=== PATIENT | male | born 1965 | race Caucasian/White ===

== ENCOUNTER 2016-07-08 10:00 | Inpatient (IN) | payer BC, OTHER ==
[~2016-07-08] VITALS: Ht 172.7 cm; Wt 138.8 kg
--- NOTE | ~2016-07-08 | HC ---
[facility] [address] [place] [address] CONSULTATION Name: ALCON MARCUM Room #: 423-1 ADM IN M.R.#: [id number] Admission: 07/08/16 Attend Phys: Ori Garcia MD Discharge: Date of : 67 Report #: [id number] THIS REPORT FOR: //name// CC: VAMSHI Garcia INFECTIOUS DISEASE CONSULTATION REASON FOR CONSULTATION: I was asked to evaluate concerning olecranon bursitis. HISTORY OF PRESENT ILLNESS: The patient is a 50-year-old diabetic who presented to the emergency room on 07/06/2016 with pain and swelling in his elbow, with some numbness in his hand. Was placed on meloxicam and prednisone. He worsened and returns with increased pain, swelling and erythema throughout his forearm and involving the upper arm. He has had mild chills, but no definite rigors. No nausea, vomiting or diarrhea. Blood glucose has been elevated. He came back to the emergency room and admitted for further treatment. He was started on vancomycin. No prior injuries. No history of arthritis. No history of skin or soft tissue infections. ALLERGIES: No known allergies. MEDICATIONS: As noted on his MAR, now on vancomycin. Also takes metformin, aspirin, dapagliflozin (Farxiga), previous statin and lisinopril. PAST MEDICAL HISTORY: As noted above, with diabetes, hypertension and hyperlipidemia. SOCIAL HISTORY: He is a nonsmoker. No significant alcohol intake. REVIEW OF SYSTEMS: No cardiopulmonary, GI or complaints. PHYSICAL EXAMINATION: VITAL SIGNS: He is afebrile and hemodynamically stable. GENERAL: Alert, cooperative and pleasant, wearing his nasal CPAP. He is obese. HEENT: Unremarkable. NECK: Supple. LUNGS: Clear. HEART: Regular. ABDOMEN: Soft and nontender. EXTREMITIES: Unremarkable, except for his left upper extremity, which had 2+ swelling in the forearm and olecranon space. He had tenderness throughout this region, there was warmth and erythema. He had limited range of motion in his elbow. Pulses in the wrist and sensation in the hand were normal. [facility] [address] [place] [address] CONSULTATION Name: ALCON MARCUM Room #: 423-1 ADM IN M.R.#: [id number] Admission: 07/08/16 Attend Phys: Ori Garcia MD Discharge: Date of : 67 Report #: [id number] LABORATORY STUDIES: MRI scan showed soft tissue swelling and a small abscess, unchanged in the posterior aspect of the elbow soft tissues. ESR was 58. Hemoglobin 15, white count 24.5, segs 90%, bands 6% bands and platelet count 229,000. Sodium 136, potassium 4.1, bicarbonate 24 and creatinine 1. Liver function test normal. IMPRESSION: A 50-year-old diabetic with an olecranon bursitis and soft tissue infection and cellulitis. PLAN: Recommend continuing IV antibiotic therapy. Will apply heat and elevation and re-assess in 24 hours. Blood cultures will be obtained and screened for MRSA. It MRSA screen is negative, we will continue his antibiotic coverage with cefazolin. Orthopedic surgery has been consulted. If no marked improvement in the next 24 hours, I would consider incision and drainage of the olecranon in order to drain the fluid collection. <ELECTRONICALLY SIGNED> By: Griffin De La Rosa MD 07/11/16 1120 [id number] Griffin De La Rosa MD /nt
--- NOTE | ~2016-07-08 | HC ---
[facility] [address] [place] [address] CONSULTATION Name: ALCON MARCUM Room #: 423-1 ADM IN M.R.#: [id number] Admission: 07/08/16 Attend Phys: Ori Garcia MD Discharge: Date of : 67 Report #: [id number] THIS REPORT FOR: //name// CC: VAMSHI Garcia DATE OF SERVICE: 07/08/2016 SERVICE: Orthopedics. IMPLEMENTATION SPECIALIST PAYROLL: Carlitos Lentz M.D. REQUESTING IMPLEMENTATION SPECIALIST PAYROLL: Ori Garcia M.D. REASON FOR CONSULTATION: Left elbow pain and swelling, cellulitis versus septic joint. PAST MEDICAL HISTORY: Hypertension, hyperlipidemia and diabetes mellitus type 2. SOCIAL HISTORY: No tobacco or drug use. He drinks alcohol rarely. 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 CURRENT MEDICATIONS: Lisinopril, aspirin, vancomycin, Lovenox, atorvastatin, metformin, Zofran and pain medicine p.r.n. ALLERGIES: No known drug allergies. FAMILY HISTORY: Noncontributory. REVIEW OF SYSTEMS: Positive for left elbow pain. Negative for drainage, nausea, vomiting, chest pain, shortness of breath, diarrhea, complaints or skin changes other than the swelling and redness or lymphadenopathy. CHIEF COMPLAINT: Left elbow pain. HISTORY OF PRESENT ILLNESS: The patient is a 50-year-old right-hand dominant gentleman with type 2 diabetes, who presented to the emergency room 2 days ago with left elbow pain and swelling. He was felt to have an inflammatory bursitis and was placed on steroids and then he went to the [employer] last night and the pain became progressively worse and he was developing swelling and eventually erythema along the elbow. He presented to the emergency room again today and then was admitted with extensive cellulitis and orthopedics was consulted to consider possible septic joint. An MRI was obtained and this showed no effusion and no myositis or osteomyelitis and no evidence of an infectious process in the joint. Presently, the patient is admitted to the [address] [place] [address] CONSULTATION Name: ALCON MARCUM Room #: 423-1 [facility] IN [facility].#: [id number] Admission: 07/08/16 Attend Phys: Ori Garcia MD Discharge: Date of : 67 Report #: [id number] floor and receiving vancomycin. PHYSICAL EXAMINATION: VITAL SIGNS: T-max of 37.3, T-current 37.1, pulse rate 95, respiratory rate 18, blood pressure 112/61 and pulse ox 95%. GENERAL: He is overweight, but otherwise healthy-appearing gentleman, alert and oriented, no acute distress, very pleasant and cooperative. He is lying supine on the hospital bed. EXTREMITIES: Right upper extremity and bilateral lower extremities show no evidence of acute orthopedic infection or orthopedic process. Left upper extremity, he has motor and sensory function intact to distribution of the radial, median and ulnar nerves. There is erythema and swelling on the distal triceps, down to the proximal half of the forearm, present on the extensor surface and extending around medially and laterally. The cubital fossa appears to be unaffected. There is no excessive swelling over the olecranon bursa and there is no evidence of fluid or purulent pocket. There is no drainage present. He has range of motion from 15 degrees of flexion to 95 degrees of flexion, without any irritability in this position. He has terminal joint pain at these extremes of motion. He has full pronation and supination intact. Shoulder, wrist and fingers are without evidence of an infectious process. He has a palpable pulse. IMAGING: Two views of the elbow, obtained 2 days ago, show no fracture or evidence of osteomyelitis. MRI obtained today shows extensive cellulitis that is all superficial to the fascia. There is no bony involvement, no myositis and no significant effusion. The amount of fluid appears to be normal for an elbow joint. IMPRESSION: A 50-year-old right-hand dominant male with type 2 diabetes with left elbow, forearm and distal arm cellulitis. PLAN: I will continue to follow him. I do not think that he has a septic joint on exam today. I explained this to him and answered his questions. I agree with the IV antibiotics and I recommended splint for soft tissue rest. We should hopefully be able to discontinue the splint and progress to activities and range of motion as tolerated once he has had a decrease in his pain and discomfort after receiving an adequate amount of IV antibiotics. Questions were answered and we will continue to follow. <ELECTRONICALLY SIGNED> By: Carlitos Lentz MD 07/09/16 0542 [id number] Carlitos Lentz MD /nt
[~2016-07-08 10:00] MED LIST: ASPIR 8181 MG PO; FARXIGA5 MG PO; KEFLEX500 MG PO; LISINOPRIL20 MG PO; METFORMIN HCL500 MG PO; MOBIC7.5 MG PO; NAPROSYN500 MG PO; NORCO 5-325 TA1 EACH PO; PRAVACHOL40 MG PO; PREDNISONE 20 M20 MG PO
[2016-07-08 10:03] VITALS: BP 130/90
[2016-07-08 11:05] LABS: HEMATOCRIT 45.7 % (42.0-52.0); HEMOGLOBIN 15.1 gm/dL (14.0-18.0); MCH 27.8 pg (26.0-34.0); MCHC 33.1 g/dL (28.0-37.0); PLATELET COUNT 229 thou/uL (150-400); RBC 5.45 mil/uL (4.50-6.00); RDW 15.2 % (10.5-14.5); WBC 24.5 thou/uL (4.0-11.0)
[2016-07-08 11:08] LABS: MANUAL DIFF YES
[2016-07-08 11:09] LABS: POTASSIUM 4.1 mmol/L (3.5-5.1)
[2016-07-08 11:14] LABS: ALBUMIN 3.6 g/dL (3.4-5.0); TOTAL BILIRUBIN 0.8 mg/dL (<0.1-1.0); TOTAL PROTEIN 7.5 g/dL (6.4-8.2)
[2016-07-08 11:58] LABS: ABSOLUTE NEUTROPHILS 23.5 thou/uL (1.4-8.2); ANISOCYTOSIS 1+; TOTAL CELL COUNT 100
[2016-07-08 13:20] VITALS: BP 119/68
[2016-07-08 13:52] VITALS: BP 138/82
[2016-07-08 15:29] VITALS: BP 112/61
[2016-07-08 19:56] VITALS: BP 123/63
[2016-07-09 03:43] VITALS: BP 117/68
[2016-07-09 04:20] LABS: HEMATOCRIT 42.2 % (42.0-52.0); HEMOGLOBIN 13.6 gm/dL (14.0-18.0); MCH 27.8 pg (26.0-34.0); MCHC 32.2 g/dL (28.0-37.0); MCV 86.4 fL (80.0-100.0); RBC 4.89 mil/uL (4.50-6.00); RDW 15.2 % (10.5-14.5); WBC 21.6 thou/uL (4.0-11.0)
[2016-07-09 04:33] LABS: CALCIUM 8.3 mg/dL (8.5-10.1); CREATININE 0.7 mg/dL (0.7-1.3)
[2016-07-09 07:31] VITALS: BP 120/63
[2016-07-09 16:04] VITALS: BP 132/76
[2016-07-09 21:30] VITALS: BP 161/82
[2016-07-10 04:48] LABS: HEMATOCRIT 41.8 % (42.0-52.0); HEMOGLOBIN 13.5 gm/dL (14.0-18.0); MCH 27.6 pg (26.0-34.0); MCHC 32.2 g/dL (28.0-37.0); MCV 85.7 fL (80.0-100.0); RBC 4.88 mil/uL (4.50-6.00); RDW 15.2 % (10.5-14.5); WBC 14.7 thou/uL (4.0-11.0)
[2016-07-10 08:22] VITALS: BP 96/67
[2016-07-10 16:29] VITALS: BP 153/86
[2016-07-10 20:35] VITALS: BP 128/69
[2016-07-11 04:50] VITALS: BP 118/77
[2016-07-11 05:42] LABS: HEMATOCRIT 41.1 % (42.0-52.0); HEMOGLOBIN 13.5 gm/dL (14.0-18.0); MCH 27.7 pg (26.0-34.0); MCHC 32.8 g/dL (28.0-37.0); MCV 84.4 fL (80.0-100.0); RBC 4.87 mil/uL (4.50-6.00); WBC 15.2 thou/uL (4.0-11.0)
[2016-07-11 06:03] LABS: CALCIUM 8.3 mg/dL (8.5-10.1); CREATININE 0.8 mg/dL (0.7-1.3); POTASSIUM 3.9 mmol/L (3.5-5.1)
[2016-07-11 07:51] VITALS: BP 138/83
[2016-07-11 15:44] VITALS: BP 128/77
[2016-07-11 19:56] VITALS: BP 123/92
[2016-07-12 04:57] VITALS: BP 123/79
[2016-07-12 05:30] LABS: HEMATOCRIT 39.2 % (42.0-52.0); MCH 28.1 pg (26.0-34.0); MCHC 33.1 g/dL (28.0-37.0); MCV 84.8 fL (80.0-100.0); RBC 4.62 mil/uL (4.50-6.00); WBC 14.1 thou/uL (4.0-11.0)
[2016-07-12 05:40] LABS: CALCIUM 8.7 mg/dL (8.5-10.1); CREATININE 0.8 mg/dL (0.7-1.3)
[2016-07-12 07:21] VITALS: BP 125/84
[2016-07-12 11:52] VITALS: BP 119/92; BP 141/100
[2016-07-12 15:45] VITALS: BP 135/81
[2016-07-12 21:05] VITALS: BP 126/71
[2016-07-13 05:06] VITALS: BP 114/71
[2016-07-13 07:17] VITALS: BP 114/67
[2016-07-13 16:02] VITALS: BP 120/73
[2016-07-13 23:00] VITALS: BP 126/79
[2016-07-14 04:39] VITALS: BP 126/61
[2016-07-14 05:13] LABS: GLYCOHEMOGLOBIN (HGB A1C) 5.7 % (4.8-5.6)
[2016-07-14 07:47] VITALS: BP 122/73
[2016-07-14 13:31] VITALS: BP 122/73
[2016-07-14] MEDS ORDERED: HYDROCODON-ACE1 EAC7 PO (13:48)
[2016-07-14 13:56] VITALS: BP 122/73
[2016-07-14 14:17] VITALS: BP 122/73
== END 2016-07-14 14:39 | disposition home health service (06) | DRG 603 ==
LOC: ER 10:00 → 4E 11:32 → EROBS 11:32 → 4E 13:28
PROVIDERS: Hospitalist; Internal Medicine; Physician Assistant
PROC: 02HV33Z Insertion of Infusion Device into Superior Vena Cava, Percutaneous Approach (ICD-10-PCS; principal; 2016-07-14)
PROC: B548ZZA Ultrasonography of Superior Vena Cava, Guidance (ICD-10-PCS; principal; 2016-07-14)
DX: L03.114 Cellulitis of left upper limb (principal); M70.22 Olecranon bursitis, left elbow; E11.9 Type 2 diabetes mellitus without complications; I10 Essential (primary) hypertension; D72.829 Elevated white blood cell count, unspecified; E78.5 Hyperlipidemia, unspecified; Z79.899 Other long term (current) drug therapy; Z79.82 Long term (current) use of aspirin; Z79.4 Long term (current) use of insulin; Y93.89 Activity, other specified
CPT/HCPCS: 10183; 10783; 27001; 52295

== ENCOUNTER → 2016-07-20 | Outpatient (CLI) | payer BC, OTHER ==
[~2016-07-20] MED LIST changes: +HYDROCODON-ACE1 EAC7 PO; +INVANZ 1GM/NS 101 GM IV
[2016-07-20 10:58] VITALS: BP 125/69
== END ==
LOC: OPONC 06:20
DX: M25.522 Pain in left elbow (principal); M70.22 Olecranon bursitis, left elbow
CPT/HCPCS: 95000

== ENCOUNTER 2016-07-22 17:12 | Emergency (ER) | payer BC, OTHER ==
[~2016-07-22] VITALS: Ht 172.7 cm; Wt 137.9 kg
[2016-07-25] MEDS ORDERED: NORCO 5-325 TA1 EACH PO (14:58)
[2016-07-25] MEDS ORDERED: INVANZ 1GM/NS 101 GM IV (15:02)
== END 2016-07-22 18:47 | disposition home or self-care (01) ==
LOC: ER 17:12
DX: Z45.2 Encounter for adjustment and management of vascular access device (principal); E11.9 Type 2 diabetes mellitus without complications; I10 Essential (primary) hypertension; E78.00 Pure hypercholesterolemia, unspecified

== ENCOUNTER 2016-07-27 05:20 | Observation (INO) | payer BC, OTHER ==
[~2016-07-27] VITALS: Ht 172.7 cm; Wt 140.2 kg
[2016-07-27] VITALS (9 sets, daily range): BP systolic 119–169; BP diastolic 64–90
--- NOTE | ~2016-07-27 | O ---
[facility] [place] [address] OPERATIVE REPORT Name: ALCON MARCUM Room #: 537-P [facility]#: [id number] Admission: 07/27/16 Attend Phys: Carlitos Lentz MD Discharge: Date of : 67 Report #: [id number] THIS REPORT FOR: //name// CC: VAMSHI MEGBABITA Lentz DATE OF SERVICE: 07/27/2016 PREOPERATIVE DIAGNOSES: Left elbow cellulitis and left elbow abscess. POSTOPERATIVE DIAGNOSES: Left elbow cellulitis and left elbow abscess. PROCEDURE: Irrigation and debridement down to fascia, left elbow/forearm infection. SURGEON: Carlitos Lentz MD CHRISTIAN SCIENCE READER: None. ANESTHESIA TYPE: General with LMA. COMPLICATIONS: None. DRAINS: None. SPECIMENS: 1. Fluid cultures sent for Gram stain, aerobic and anaerobic. 2. Tissue cultures sent for Gram stain, aerobic, and anaerobic. ESTIMATED BLOOD LOSS: 150 mL. FINDINGS: 1. Tracking of pocket beneath the fat layer overlying the fascia without any deep communication. 2. Iodoform packing placed. HISTORY AND INDICATION: The patient is a 50-year-old male with history of persistent left elbow cellulitis. He had persistent induration despite appropriate antibiotics and an ultrasound suggested that there was a fluid collection superficial to the fascia deep to the fat. He ultimately elected to undergo surgical treatment at our recommendation. Risks, benefits, alternatives and indications for surgery were discussed with him. Risks include, but not limited to pain, bleeding, infection, injury to nerves or blood vessels, persistent pain despite surgical intervention, stiffness, need for further surgery including repeat I and D as well as complications related to anesthesia such as stroke, heart attack, pulmonary complications, thromboembolic disease [facility] [address] [place] [address] OPERATIVE REPORT Name: ALCON MARCUM Room #: 537-P [facility] M.R.#: [id number] Admission: 07/27/16 Attend Phys: Carlitos Lentz MD Discharge: Date of : 67 Report #: [id number] and . Despite these risks, he wished to proceed. PROCEDURE IN DETAIL: After left upper extremity was correctly identified in the preoperative holding area as the operative extremity, the patient was taken to the operating room and placed supine on operating table and general anesthesia with LMA was induced without complication. He was padded appropriately. Prophylactic antibiotics were administered at appropriate time. Left upper extremity was prepped and draped in standard sterile fashion. Time-out procedure was performed. A lateral approach to the proximal forearm was made through the skin and dissection was taken down over the indurated area to the fascia. There was a pocket of fluid here that was without any yasmani evidence of pus, but there was abnormal fluid in this vicinity. Blunt dissection was performed to explore under the fat layer superficial to the fascia and all septations were broken up. The fluid was cultured and sent and then a rongeur was used to obtain a piece of necrotic fat tissue overlying the fascia and this was sent for a second culture. At this point, a blunt [place] elevator was used to abrade the fascia and the underside of the fat layer to debride this area and then a gauze was packed repeatedly into the wound to debride the soft tissues as well and then a liter of irrigation was used to thoroughly irrigate all pockets. At this point, the wound was very clean appearing. Hemostasis was then achieved with the electrocautery and then at this point, a total of approximately 11 feet of iodoform gauze packing was packed into the wound and it was left open. A sterile dressing followed by an Vijay wrap was then applied to the arm. The patient was awakened from anesthesia and taken to recovery room in stable condition. <ELECTRONICALLY SIGNED> By: Carlitos Lentz MD 07/28/16 0633 0903 1130 Carlitos Lentz MD /nt
--- NOTE | ~2016-07-27 | H ---
[facility] [address] [place] [address] HISTORY AND PHYSICAL Name: MARCUM,TIFFANIE Room #: 537-P [facility] Judd MBrigidaRBrigida#: [id number] Admission: 07/27/16 Attend Phys: Carlitos Lentz MD Discharge: 07/28/16 Date of : 67 Report #: [id number] THIS REPORT FOR: //name// For History and Physical, please see office documentation/handwritten note in the patient's medical record. <ELECTRONICALLY SIGNED> By: Carlitos Lentz MD 08/02/16 1003 0846 Carlitos Lentz MD /
[2016-07-28 04:00] VITALS: BP 128/77
[2016-07-28 08:15] VITALS: BP 138/90
[2016-07-28 10:22] VITALS: BP 138/90
[2016-07-28 10:33] VITALS: BP 138/90
== END 2016-07-28 16:32 | disposition home health service (06) ==
LOC: 5S 05:20 → TBA 05:20 → 5S 10:02 → PRE 10:22 → 5S 07-28 16:32
DX: L03.114 Cellulitis of left upper limb (principal); D72.829 Elevated white blood cell count, unspecified; E11.69 Type 2 diabetes mellitus with other specified complication
CPT/HCPCS: 50010; 50101; 53078; 57091; 62110; 62900; 64037; 70005